=== PATIENT | female | born 1965 | race Caucasian/White ===

== ENCOUNTER 2022-07-07 09:12 | Day surgery (SDC) | payer BC ==
[2022-07-07] MEDS ORDERED: SYNVISC 16 MG/2 ML SYRINGE IU ONE (09:13)
[2022-07-07] MEDS ORDERED: LIDOCAINE HCL 1% 50 MG/5 ML VL PF IJ ONE (09:13)
--- NOTE | 2022-07-07 12:32 | XRAY ---
Indication: Right knee injection. Intraoperative fluoroscopy provided for 8 seconds. Single digital spot images submitted for interpretation demonstrates needle tip projecting over the right femur intercondylar notch. Small amount of contrast injected for needle tip placement. Correlate with intraoperative findings/report.
--- NOTE | 2022-07-07 12:32 | XRAY ---
Indication: Left knee injection. Intraoperative fluoroscopy provided for 7 seconds. Single digital spot images submitted for interpretation demonstrates needle tip projecting over the left femur intercondylar notch. Small amount of contrast injected for needle tip placement. Correlate with intraoperative findings/report.
--- NOTE | 2022-07-07 12:41 | XRAY ---
7 seconds of fluoroscopy was used in surgery for a left intra-articular knee injection.
--- NOTE | 2022-07-07 12:41 | XRAY ---
8 seconds of fluoroscopy was used in surgery for a right intra-articular knee injection.
== END 2022-07-07 11:25 | disposition home or self-care (01) ==
LOC: SDC-PAIN 09:12
PROVIDERS: ATTEND Psychiatry & Neurology Pain Medicine
DX: M17.0 Bilateral primary osteoarthritis of knee (principal); E11.9 Type 2 diabetes mellitus without complications; Z79.899 Other long term (current) drug therapy
CPT/HCPCS: 20610; 73560; 77002; 82947; J2001; J7325; Q9966

== ENCOUNTER 2022-07-14 09:13 | Day surgery (SDC) | payer BC ==
[2022-07-14] MEDS ORDERED: ORTHOVISC IU ONE (09:14)
[2022-07-14] MEDS ORDERED: LIDOCAINE HCL 1% 50 MG/5 ML VL PF IJ ONE (09:14)
--- NOTE | 2022-07-14 18:33 | XRAY ---
Indication: Left knee injection. Intraoperative fluoroscopy provided for 4 seconds. Single digital spot image submitted for interpretation demonstrates needle tip projecting over the left femur intercondylar notch. Small amount of contrast injected for needle tip placement. Correlate with intraoperative findings/report.
--- NOTE | 2022-07-14 18:33 | XRAY ---
Indication: Right knee injection. Intraoperative fluoroscopy provided for 10 seconds. Single digital spot image submitted for interpretation demonstrates needle tip projecting over the right femur intercondylar notch. Small amount of contrast injected for needle tip placement. Correlate with intraoperative findings/report.
--- NOTE | 2022-07-14 19:01 | XRAY ---
10 seconds of fluoroscopy was used in surgery for a right knee intra-articular injection.
--- NOTE | 2022-07-14 19:01 | XRAY ---
4 seconds of fluoroscopy was used in surgery for a left knee intra-articular injection.
== END 2022-07-14 10:35 | disposition home or self-care (01) ==
LOC: SDC-PAIN 09:13
PROVIDERS: ATTEND Psychiatry & Neurology Pain Medicine
DX: M17.0 Bilateral primary osteoarthritis of knee (principal); E11.9 Type 2 diabetes mellitus without complications; Z79.899 Other long term (current) drug therapy
CPT/HCPCS: 20610; 73560; 77002; 82947; J2001; J7324; Q9966

== ENCOUNTER 2022-07-21 09:06 | Day surgery (SDC) | payer BC ==
[2022-07-21] MEDS ORDERED: LIDOCAINE HCL 1% 50 MG/5 ML VL PF IJ ONE (09:07)
[2022-07-21] MEDS ORDERED: ORTHOVISC IU ONE (09:07)
--- NOTE | 2022-07-21 12:09 | XRAY ---
Indication: Right knee injection. Intraoperative fluoroscopy provided for 7 seconds. Single digital spot image submitted for interpretation demonstrates needle tip projecting over the right femur intercondylar notch. Small amount of contrast injected for needle tip placement. Correlate with intraoperative findings/report.
--- NOTE | 2022-07-21 12:10 | XRAY ---
Indication: Left knee injection. Intraoperative fluoroscopy provided for 10 seconds. Single digital spot image submitted for interpretation demonstrates needle tip projecting over the left femur intercondylar notch. Small amount of contrast injected for needle tip placement. Correlate with intraoperative findings/report.
--- NOTE | 2022-07-21 12:42 | XRAY ---
7 seconds of fluoroscopy was used in surgery for a right intra-articular knee injection.
--- NOTE | 2022-07-21 12:42 | XRAY ---
10 seconds of fluoroscopy was used in surgery for a left intra-articular knee injection.
== END 2022-07-21 11:40 | disposition home or self-care (01) ==
LOC: SDC-PAIN 09:06
PROVIDERS: ATTEND Psychiatry & Neurology Pain Medicine
DX: M17.0 Bilateral primary osteoarthritis of knee (principal); E11.9 Type 2 diabetes mellitus without complications; I10 Essential (primary) hypertension; Z79.899 Other long term (current) drug therapy
CPT/HCPCS: 20610; 73560; 77002; 82947; J2001; J7324; Q9966

== ENCOUNTER 2023-09-26 10:09 | Observation (INO) | payer BC ==
--- NOTE | 2023-09-26 08:32 | HP ---
HISTORY OF PRESENT ILLNESS: The patient is a 57-year-old female who has intermittent pain in the epigastrium, had prior umbilical hernia repair well away from the current area in question. PAST MEDICAL HISTORY: Hypertension, anxiety, type 2 diabetes, and depression. PAST SURGICAL HISTORY: Umbilical hernia repair in the past, had hysterectomy in the past. HOME MEDICATIONS: Ibuprofen, Xanax, Mounjaro, metformin, glimepiride, lisinopril. ALLERGIES: Morphine. SOCIAL HISTORY: No smoking or alcohol abuse. FAMILY HISTORY: Negative. REVIEW OF SYSTEMS: Twelve systems reviewed. No chest pain or palpitations. Other systems negative or noncontributory as above and per preadmission questionnaire. PHYSICAL EXAMINATION: VITAL SIGNS: Height 5 feet 6 inches. BMI 32.28. HEENT: Sclerae nonicteric. Extraocular movements intact. NECK: No JVD. CHEST: Equal excursion, nonlabored breathing. CARDIOVASCULAR: Regular rate and rhythm. ABDOMEN: Soft. Epigastric ventral hernia at the right of midline, incarcerated sac. EXTREMITIES: No cyanosis or edema. NEUROLOGIC: Alert and oriented, moving all extremities symmetrically. PSYCHIATRIC: Appropriate mood and affect. SKIN: Dry. IMPRESSION: Incarcerated ventral hernia. Recommend repair. Risks include but not limited to bleeding; infection; risk of hematoma seroma, or trocar injury; risk of bowel, bladder, or blood vessel injury; risk of mesh use; risks of mesh infection possibly requiring removal; risk of aches, pains, numbness, burning possibly chronic in nature; risk of adhesion or scar formation or bowel obstruction; remote risk of mesh fracture or failure possibly creating issues with viscera structure with the risk of ongoing morbidity and mortality; risk of perioperative ileus; risk of anesthesia, DVT, PE, pneumonia, but not limited. Patient accepts all the above risks but not limited to and agrees to the planned procedure. We will proceed with outpatient laparoscopic repair of incarcerated ventral hernia with mesh, possible open. Otherwise, we will continue medication for anxiety, diabetes, and hypertension.
[~2023-09-26 10:09] MED LIST: Sensorcaine 0.25% 10 ML ONE
[2023-09-26] MEDS ORDERED: CEFAZOLIN 2 GM/100 ML NaCl 2 GM/100 ML IVPB IV ONE (10:29)
[2023-09-26] MEDS ORDERED: Lactated Ringers 1,000 ML IV ONE ×2 (10:30→14:33)
[2023-09-26] MEDS: Lactated Ringers 1,000 ML IV SCH (10:48)
[2023-09-26] MEDS: CEFAZOLIN 2 GM/100 ML NaCl 2 GM/100 ML IVPB IV SCH (10:53)
[2023-09-26] MEDS ORDERED: MEFOXIN 2 GM PREMIX** 2 GM/50 ML ML IV SCH (11:00)
[2023-09-26 11:09] LABS: Calcium 9.6 mg/dL (8.4-10.2); Creatinine 1 0.93 mg/dL (0.52-1.04); EST GLOMERULAR FILTRATION RATE 72.1 ML/MIN; Potassium 3.8 mmol/L (3.5-5.1)
[2023-09-26] MEDS ORDERED: SUBLIMAZE 100 MCG/2 ML ONE ×2 (12:08→15:02)
[2023-09-26] MEDS ORDERED: DIPRIVAN 200 MG/20 ML IV ONE (12:08)
[2023-09-26] MEDS ORDERED: ROCURONIUM BROMIDE IV ONE ×2 (12:08→13:42)
[2023-09-26] MEDS ORDERED: Versed 2 MG/2 ML Injection ONE (12:08)
[2023-09-26] MEDS ORDERED: Xylocaine-Mpf 2% 5 Ml Vial ONE (12:09)
[2023-09-26] MEDS ORDERED: Sensorcaine 0.25% 10 ML ONE (12:29)
[2023-09-26] MEDS ORDERED: PHENYLEPHRINE HCL ONE (13:08)
[2023-09-26] MEDS ORDERED: Marcaine 0.5%/Epinephrine 10 ML ONE (14:00)
[2023-09-26] MEDS ORDERED: Zofran 4 MG/2 ML VIAL ONE (14:04)
[2023-09-26] MEDS ORDERED: BRIDION 200MG/2ML IV ONE (14:04)
[2023-09-26] MEDS ORDERED: TORAdol 30 mg Injection ONE (14:04)
[2023-09-26 15:02] LABS: Appearance Clear (Clear); Bacteria None Seen /HPF (None Seen); Bilirubin Negative (Negative); Blood Negative (Negative); Epithelial Cells None Seen /HPF (None Seen); Glucose, Urine Negative (Negative); Ketones Negative (Negative); Leukocyte Esterase Negative (Negative); Nitrite Negative (Negative); Protein,Urine Dip Trace (Negative); RBC 0-2 /HPF (0-5); Urobilinogen 0.2 mg/dL (0.2)
[2023-09-26] MEDS ORDERED: DEMEROL 50 MG ONE (15:41)
[2023-09-26] MEDS: MAGNESIUM SULF 2 G/50 ML BAG 2 GM/50 ML PIGGYBACK IV ONE (17:15)
--- NOTE | 2023-09-26 17:15 | PCM.NOTE ---
Date and Time: 09/26/231708 Subjective Assessment: MS. Segvoia is a 57 yr old female with pmhx of HTN, TYpeII DM, anxiety, and depression. She had a surgical procedure with Dr. Delgado today for a lap ventral hernia repair. In Surgery pt apprently bigeminy/ PVC's on tele. Pt was admitted post OP procedure for further evaluation of abnormal heart rhythm and by our team for medical management. Will check electrolytes, monitor on tele, and cardiology consulted. She denies any CP, SOB, abd. pain, N/V/D. - Review of Systems Constitutional: No Fever, No Chills Eyes: No Symptoms Ears, Nose, & Throat: No Symptoms Respiratory: No Cough, No Short Of Breath Cardiac: No Chest Pain, No Edema, No Syncope Abdominal/Gastrointestinal: No Abdominal Pain, No Nausea, No Vomiting, No Diarrhea Genitourinary Symptoms: No Dysuria Musculoskeletal: No Back Pain, No Neck Pain Skin: No Rash Neurological: No Dizziness, No Focal Weakness, No Sensory Changes Psychological: No Symptoms Endocrine: No Symptoms Hematologic/Lymphatic: No Symptoms Immunological/Allergic: No Symptoms Objective Exam General Appearance: no apparent distress, alert, obese Neurologic Exam: alert, oriented x 3, cooperative, normal mood/affect, nml cerebellar function, sensation nml, No motor deficits Skin Exam: normal color, warm, dry Eye Exam: PERRL, EOMI, eyes nml inspection Ears, Nose, Throat Exam: normal ENT inspection, pharynx normal, moist mucous membranes Neck Exam: normal inspection, non-tender, supple, full range of motion Respiratory Exam: normal breath sounds, lungs clear, No respiratory distress Cardiovascular Exam: regular rate/rhythm, normal heart sounds Gastrointestinal/Abdomen Exam: soft, No tenderness, No mass Extremity Exam: normal inspection, normal range of motion Back Exam: normal inspection, normal range of motion, No CVA tenderness, No vertebral tenderness Pelvic Exam: deferred Rectal Exam: deferred Objective Data Vital Signs: Vital Signs - 24 hr Temp Pulse Resp BP Pulse Ox 09/26/23 10:26 96.9 F 79 14 108/55 96 09/26/23 10:19 96.9 F 79 14 108/55 96 Intake and Output: Intake & Output 09/24/23 09/25/23 09/26/23 09/27/23 11:59 11:59 11:59 11:59 Weight 95.2 kg Lab Results: Lab Results-Last 24 Hours 09/26/23 09/26/23 09/26/23 Range/Units 10:45 10:46 10:46 Sodium 139 (135-145) mmol/L Potassium 3.8 (3.5-5.1) mmol/L Chloride 105 (98-107) mmol/L Carbon Dioxide 26 (22-30) mmol/L Anion Gap 12.0 (5-15) MEQ/L BUN 26 H (7-17) mg/dL Creatinine 0.93 (0.52-1.04) mg/dL Estimated GFR 72.1 ML/MIN Glucose 160 H (74-106) mg/dL POC Glucometer 160 H (74 to 106) mg/dL Hemoglobin A1c 5.90 (4.5-6.0) % Calcium 9.6 (8.4-10.2) mg/dL Magnesium (1.6-2.3) mg/dL Urine Color (Yellow) Urine Appearance (Clear) Urine pH (4.6-8.0) Ur Specific [place] (1.005-1.030) Urine Protein (Negative) Urine Glucose (UA) (Negative) mg/dL Urine Ketones (Negative) Urine Blood (Negative) Urine Nitrite (Negative) Urine Bilirubin (Negative) Urine Urobilinogen (0.2) mg/dL Ur Leukocyte Esterase (Negative) U Hyaline Cast (Auto) (0-2) /LPF Urine Microscopic RBC (0-5) /HPF Urine Microscopic WBC (0-5) /HPF Ur Epithelial Cells (None Seen) /HPF Urine Bacteria (None Seen) /HPF 09/26/23 09/26/23 09/26/23 Range/Units 13:00 14:49 14:58 Sodium (135-145) mmol/L Potassium (3.5-5.1) mmol/L Chloride (98-107) mmol/L Carbon Dioxide (22-30) mmol/L Anion Gap (5-15) MEQ/L BUN (7-17) mg/dL Creatinine (0.52-1.04) mg/dL Estimated GFR ML/MIN Glucose (74-106) mg/dL POC Glucometer 156 H (74 to 106) mg/dL Hemoglobin A1c (4.5-6.0) % Calcium (8.4-10.2) mg/dL Magnesium 1.7 (1.6-2.3) mg/dL Urine Color Yellow (Yellow) Urine Appearance Clear (Clear) Urine pH 7.0 (4.6-8.0) Ur Specific [place] 1.020 (1.005-1.030) Urine Protein Trace A (Negative) Urine Glucose (UA) Negative (Negative) mg/dL Urine Ketones Negative (Negative) Urine Blood Negative (Negative) Urine Nitrite Negative (Negative) Urine Bilirubin Negative (Negative) Urine Urobilinogen 0.2 (0.2) mg/dL Ur Leukocyte Esterase Negative (Negative) U Hyaline Cast (Auto) 3-5 A (0-2) /LPF Urine Microscopic RBC 0-2 (0-5) /HPF Urine Microscopic WBC 3-5 (0-5) /HPF Ur Epithelial Cells None Seen (None Seen) /HPF Urine Bacteria None Seen (None Seen) /HPF 09/26/23 Range/Units 17:02 Sodium (135-145) mmol/L Potassium (3.5-5.1) mmol/L Chloride (98-107) mmol/L Carbon Dioxide (22-30) mmol/L Anion Gap (5-15) MEQ/L BUN (7-17) mg/dL Creatinine (0.52-1.04) mg/dL Estimated GFR ML/MIN Glucose (74-106) mg/dL POC Glucometer 163 H (74 to 106) mg/dL Hemoglobin A1c (4.5-6.0) % Calcium (8.4-10.2) mg/dL Magnesium (1.6-2.3) mg/dL Urine Color (Yellow) Urine Appearance (Clear) Urine pH (4.6-8.0) Ur Specific Maple (1.005-1.030) Urine Protein (Negative) Urine Glucose (UA) (Negative) mg/dL Urine Ketones (Negative) Urine Blood (Negative) Urine Nitrite (Negative) Urine Bilirubin (Negative) Urine Urobilinogen (0.2) mg/dL Ur Leukocyte Esterase (Negative) U Hyaline Cast (Auto) (0-2) /LPF Urine Microscopic RBC (0-5) /HPF Urine Microscopic WBC (0-5) /HPF Ur Epithelial Cells (None Seen) /HPF Urine Bacteria (None Seen) /HPF Assessment/Plan (1) S/P repair of ventral hernia Current Visit: Yes Status: Acute Assessment & Plan: - Pt had procedure today with Dr. Delgado - Admitted by Dr. Delgado - Hospitalist consulted for medical management. - Ceftriaxone gave in OR. - Pain control - N/V PRN medication Code(s): Z98.890 - OTHER SPECIFIED POSTPROCEDURAL STATES; Z87.19 - PERSONAL HIS TORY OF OTHER DISEASES OF THE DIGESTIVE SYSTEM (2) PVC's (premature ventricular contractions) Current Visit: Yes Status: Acute Assessment & Plan: - tele - cardiology consult - Check electrolytes - Magnesium replaced IV in OR. Code(s): I49.3 - VENTRICULAR PREMATURE DEPOLARIZATION (3) Bigeminy Current Visit: Yes Status: Acute Assessment & Plan: - tele - cardiology consult - Check electrolytes - Magnesium replaced IV in OR. Code(s): I49.8 - OTHER SPECIFIED CARDIAC ARRHYTHMIAS (4) Obesity (BMI 30.0-34.9) Current Visit: Yes Status: Chronic Assessment & Plan: - advised diet and exercise control VTE: SCD's Next of KIN: D/C plan: tomorrow Code status: full Code(s): E66.9 - OBESITY, UNSPECIFIED
[2023-09-26] MEDS ORDERED: HUMALOG SQ PRN (17:32)
[2023-09-26 17:48] LABS: Hematocrit 40.3 % (34.1-44.9); Hemoglobin 13.8 g/dL (11.2-15.7); Mean Cell Volume 90.8 fL (79.4-94.8); Mean Corpuscular Hemoglobin 31.1 pg (25.6-32.2); Mean Corpuscular Hgb Concent. 34.2 g/dL (32.2-35.5); Mean Platelet Volume 10.2 fL (9.4-12.3); Platelet Count 193 x10^3/uL (182-369); Red Blood Count 4.44 x10^6/uL (3.93-5.22); Red Cell Distribution Width 12.6 % (11.7-14.4); White Blood Count 7.9 x10^3/uL (3.98-10.04)
[2023-09-26] MEDS ORDERED: Zofran 4 MG/2 ML VIAL IV PRN (18:15)
[2023-09-26] MEDS ORDERED: xanAX 0.5 MG PO PRN (18:30)
[2023-09-26 18:36] LABS: ANION GAP 12.3 MEQ/L (5-15); MAGNESIUM 2.3 mg/dL (1.6-2.3); Potassium 3.7 mmol/L (3.5-5.1); TSH, 3RD Generation 0.91 mIU/L (0.470-4.680)
[2023-09-26] MEDS: NORCO 5/325 MG PO PRN (18:50)
[2023-09-26] MEDS: Glucophage 500 MG PO SCH (22:41)
[2023-09-26] MEDS: Amaryl 2 MG PO SCH (22:41)
[2023-09-26] MEDS: Zestril 10 MG PO SCH (22:41)
[2023-09-27 05:33] LABS: Hemoglobin 12.4 g/dL (11.2-15.7); Mean Cell Volume 92.5 fL (79.4-94.8); Mean Corpuscular Hgb Concent. 33.5 g/dL (32.2-35.5); Mean Platelet Volume 11.2 fL (9.4-12.3); Platelet Count 191 x10^3/uL (182-369); Red Cell Distribution Width 12.7 % (11.7-14.4); White Blood Count 5.3 x10^3/uL (3.98-10.04)
[2023-09-27 05:49] LABS: ALBUMIN 3.4 g/dL (3.5-5.0); ANION GAP 8.6 MEQ/L (5-15); BILIRUBIN,TOTAL 0.7 mg/dL (0.2-1.3); Calcium 8.9 mg/dL (8.4-10.2); Creatinine 1 1.06 mg/dL (0.52-1.04); EST GLOMERULAR FILTRATION RATE 61.7 ML/MIN; Potassium 3.5 mmol/L (3.5-5.1); Total Protein 5.8 g/dL (6.3-8.2)
[2023-09-27 07:39] VITALS: TEMP 97.8
[2023-09-27] MEDS ORDERED: SUBLIMAZE 100 MCG/2 ML IV PRN (07:53)
[2023-09-27] MEDS ORDERED: Amaryl 2 MG PO SCH (10:00)
[2023-09-27] MEDS ORDERED: xanAX 0.5 MG PO SCH (10:00)
[2023-09-27] MEDS ORDERED: Zestril 10 MG PO SCH (10:00)
[2023-09-27 10:57] VITALS: BP 105/57; PULSE 76; RESP 19; O2SAT 93
--- NOTE | 2023-09-27 12:31 | PCM.NOTE ---
Date and Time: 09/27/23 1226 Subjective Assessment: 09/26/23 MRS. Segovia is a 57 yr old female with pmhx of HTN, TYpeII DM, anxiety, and depression. She had a surgical procedure with Dr. Delgado today for a lap ventral hernia repair. In Surgery pt apprently bigeminy/ PVC's on tele. Pt was admitted post OP procedure for further evaluation of abnormal heart rhythm and by our team for medical management. Will check electrolytes, monitor on tele, and cardiology consulted. She denies any CP, SOB, abd. pain, N/V/D. 09/27/23 Pt is resting in bed. Encouraged pt to work with PT today. Staff tried to get pt up and sit in a chair and she refused and said she hurt too bad. PVC's are occurring less. She denies CP or SOB. Awaiting cardiology consult. She has no electrolyte abnormalities. Possible d/c per surgery recs. IVF stopped as left arm became swollen. She is eating and drinking well. She has some abd. discomfort as to be expected from her surgery. - Review of Systems Constitutional: No Fever, No Chills Eyes: No Symptoms Ears, Nose, & Throat: No Symptoms Respiratory: No Cough, No Short Of Breath Cardiac: No Chest Pain, No Edema, No Syncope Abdominal/Gastrointestinal: Abdominal Pain, No Nausea, No Vomiting, No Diarrhea Genitourinary Symptoms: No Dysuria Musculoskeletal: No Back Pain, No Neck Pain Skin: No Rash Neurological: No Dizziness, No Focal Weakness, No Sensory Changes Psychological: No Symptoms Endocrine: No Symptoms Hematologic/Lymphatic: No Symptoms Immunological/Allergic: No Symptoms Objective Exam General Appearance: no apparent distress, alert, other (distress only with movement) Neurologic Exam: alert, oriented x 3, cooperative, normal mood/affect, nml cerebellar function, sensation nml, No motor deficits Skin Exam: normal color, warm, dry Eye Exam: PERRL, EOMI, eyes nml inspection Ears, Nose, Throat Exam: normal ENT inspection, pharynx normal, moist mucous membranes Neck Exam: normal inspection, non-tender, supple, full range of motion Respiratory Exam: normal breath sounds, lungs clear, No respiratory distress Cardiovascular Exam: regular rate/rhythm, normal heart sounds, other (with PVC's- improved from yesterday) Gastrointestinal/Abdomen Exam: soft, No tenderness, No mass Extremity Exam: normal inspection, normal range of motion Back Exam: normal inspection, normal range of motion, No CVA tenderness, No vertebral tenderness Pelvic Exam: deferred Rectal Exam: deferred Objective Data Vital Signs: Vital Signs - 24 hr Temp Pulse Resp BP Pulse Ox 09/27/23 10:56 97.8 F 76 19 105/57 93 L 09/27/23 07:39 97.8 F 72 18 103/55 97 09/27/23 04:00 96.7 F 69 16 100/59 93 L 09/26/23 23:26 98.1 F 72 16 118/58 95 09/26/23 19:12 97.6 F 74 16 120/65 96 09/26/23 17:27 97.5 F 76 19 95/49 92 L Pain Assessment - Last Documented Pain Intensity 4 Pain Scale Used 0-10 Pain Scale Intake and Output: Intake & Output 09/25/23 09/26/23 09/27/23 09/28/23 11:59 11:59 11:59 11:59 Intake Total 600 Balance 600 Weight 95.2 kg 96.2 kg Lab Results: Lab Results-Last 24 Hours 09/26/23 09/26/23 09/26/23 Range/Units 13:00 14:49 14:58 WBC (3.98-10.04) x10^3/uL RBC (3.93-5.22) x10^6/uL Hgb (11.2-15.7) g/dL Hct (34.1-44.9) % MCV (79.4-94.8) fL MCH (25.6-32.2) pg MCHC (32.2-35.5) g/dL RDW (11.7-14.4) % Plt Count (182-369) x10^3/uL MPV (9.4-12.3) fL Sodium (135-145) mmol/L Potassium (3.5-5.1) mmol/L Chloride (98-107) mmol/L Carbon Dioxide (22-30) mmol/L Anion Gap (5-15) MEQ/L BUN (7-17) mg/dL Creatinine (0.52-1.04) mg/dL Estimated GFR ML/MIN Glucose (74-106) mg/dL POC Glucometer 156 H (74 to 106) mg/dL Calcium (8.4-10.2) mg/dL Magnesium 1.7 (1.6-2.3) mg/dL Total Bilirubin (0.2-1.3) mg/dL AST (14-36) U/L ALT (0-35) U/L Alkaline Phosphatase (38-126) U/L Serum Total Protein (6.3-8.2) g/dL Albumin (3.5-5.0) g/dL TSH 3rd Generation (0.470-4.680) mIU/L Urine Color Yellow (Yellow) Urine Appearance Clear (Clear) Urine pH 7.0 (4.6-8.0) Ur Specific [place] 1.020 (1.005-1.030) Urine Protein Trace A (Negative) Urine Glucose (UA) Negative (Negative) mg/dL Urine Ketones Negative (Negative) Urine Blood Negative (Negative) Urine Nitrite Negative (Negative) Urine Bilirubin Negative (Negative) Urine Urobilinogen 0.2 (0.2) mg/dL Ur Leukocyte Esterase Negative (Negative) U Hyaline Cast (Auto) 3-5 A (0-2) /LPF Urine Microscopic RBC 0-2 (0-5) /HPF Urine Microscopic WBC 3-5 (0-5) /HPF Ur Epithelial Cells None Seen (None Seen) /HPF Urine Bacteria None Seen (None Seen) /HPF 09/26/23 09/26/23 09/26/23 Range/Units 17:02 17:40 17:40 WBC 7.9 (3.98-10.04) x10^3/uL RBC 4.44 (3.93-5.22) x10^6/uL Hgb 13.8 (11.2-15.7) g/dL Hct 40.3 (34.1-44.9) % MCV 90.8 (79.4-94.8) fL MCH 31.1 (25.6-32.2) pg MCHC 34.2 (32.2-35.5) g/dL RDW 12.6 (11.7-14.4) % Plt Count 193 (182-369) x10^3/uL MPV 10.2 (9.4-12.3) fL Sodium 138 (135-145) mmol/L Potassium 3.7 (3.5-5.1) mmol/L Chloride 103 (98-107) mmol/L Carbon Dioxide 26 (22-30) mmol/L Anion Gap 12.3 (5-15) MEQ/L BUN (7-17) mg/dL Creatinine (0.52-1.04) mg/dL Estimated GFR ML/MIN Glucose (74-106) mg/dL POC Glucometer 163 H (74 to 106) mg/dL Calcium (8.4-10.2) mg/dL Magnesium 2.3 (1.6-2.3) mg/dL Total Bilirubin (0.2-1.3) mg/dL AST (14-36) U/L ALT (0-35) U/L Alkaline Phosphatase (38-126) U/L Serum Total Protein (6.3-8.2) g/dL Albumin (3.5-5.0) g/dL TSH 3rd Generation 0.910 (0.470-4.680) mIU/L Urine Color (Yellow) Urine Appearance (Clear) Urine pH (4.6-8.0) Ur Specific [place] (1.005-1.030) Urine Protein (Negative) Urine Glucose (UA) (Negative) mg/dL Urine Ketones (Negative) Urine Blood (Negative) Urine Nitrite (Negative) Urine Bilirubin (Negative) Urine Urobilinogen (0.2) mg/dL Ur Leukocyte Esterase (Negative) U Hyaline Cast (Auto) (0-2) /LPF Urine Microscopic RBC (0-5) /HPF Urine Microscopic WBC (0-5) /HPF Ur Epithelial Cells (None Seen) /HPF Urine Bacteria (None Seen) /HPF 09/26/23 09/27/23 09/27/23 Range/Units 21:43 04:40 04:40 WBC 5.3 (3.98-10.04) x10^3/uL RBC 4.00 (3.93-5.22) x10^6/uL Hgb 12.4 (11.2-15.7) g/dL Hct 37.0 (34.1-44.9) % MCV 92.5 (79.4-94.8) fL MCH 31.0 (25.6-32.2) pg MCHC 33.5 (32.2-35.5) g/dL RDW 12.7 (11.7-14.4) % Plt Count 191 (182-369) x10^3/uL MPV 11.2 (9.4-12.3) fL Sodium (135-145) mmol/L Potassium (3.5-5.1) mmol/L Chloride (98-107) mmol/L Carbon Dioxide (22-30) mmol/L Anion Gap (5-15) MEQ/L BUN (7-17) mg/dL Creatinine (0.52-1.04) mg/dL Estimated GFR ML/MIN Glucose (74-106) mg/dL POC Glucometer 162 H (74 to 106) mg/dL Calcium (8.4-10.2) mg/dL Magnesium 2.2 (1.6-2.3) mg/dL Total Bilirubin (0.2-1.3) mg/dL AST (14-36) U/L ALT (0-35) U/L Alkaline Phosphatase (38-126) U/L Serum Total Protein (6.3-8.2) g/dL Albumin (3.5-5.0) g/dL TSH 3rd Generation (0.470-4.680) mIU/L Urine Color (Yellow) Urine Appearance (Clear) Urine pH (4.6-8.0) Ur Specific [place] (1.005-1.030) Urine Protein (Negative) Urine Glucose (UA) (Negative) mg/dL Urine Ketones (Negative) Urine Blood (Negative) Urine Nitrite (Negative) Urine Bilirubin (Negative) Urine Urobilinogen (0.2) mg/dL Ur Leukocyte Esterase (Negative) U Hyaline Cast (Auto) (0-2) /LPF Urine Microscopic RBC (0-5) /HPF Urine Microscopic WBC (0-5) /HPF Ur Epithelial Cells (None Seen) /HPF Urine Bacteria (None Seen) /HPF 09/27/23 09/27/23 09/27/23 Range/Units 04:40 06:54 10:49 WBC (3.98-10.04) x10^3/uL RBC (3.93-5.22) x10^6/uL Hgb (11.2-15.7) g/dL Hct (34.1-44.9) % MCV (79.4-94.8) fL MCH (25.6-32.2) pg MCHC (32.2-35.5) g/dL RDW (11.7-14.4) % Plt Count (182-369) x10^3/uL MPV (9.4-12.3) fL Sodium 138 (135-145) mmol/L Potassium 3.5 (3.5-5.1) mmol/L Chloride 105 (98-107) mmol/L Carbon Dioxide 28 (22-30) mmol/L Anion Gap 8.6 (5-15) MEQ/L BUN 24 H (7-17) mg/dL Creatinine 1.06 H (0.52-1.04) mg/dL Estimated GFR 61.7 ML/MIN Glucose 101 (74-106) mg/dL POC Glucometer 65 L 132 H (74 to 106) mg/dL Calcium 8.9 (8.4-10.2) mg/dL Magnesium (1.6-2.3) mg/dL Total Bilirubin 0.70 (0.2-1.3) mg/dL AST 21 (14-36) U/L ALT 21 (0-35) U/L Alkaline Phosphatase 57 (38-126) U/L Serum Total Protein 5.8 L (6.3-8.2) g/dL Albumin 3.4 L (3.5-5.0) g/dL TSH 3rd Generation (0.470-4.680) mIU/L Urine Color (Yellow) Urine Appearance (Clear) Urine pH (4.6-8.0) Ur Specific [place] (1.005-1.030) Urine Protein (Negative) Urine Glucose (UA) (Negative) mg/dL Urine Ketones (Negative) Urine Blood (Negative) Urine Nitrite (Negative) Urine Bilirubin (Negative) Urine Urobilinogen (0.2) mg/dL Ur Leukocyte Esterase (Negative) U Hyaline Cast (Auto) (0-2) /LPF Urine Microscopic RBC (0-5) /HPF Urine Microscopic WBC (0-5) /HPF Ur Epithelial Cells (None Seen) /HPF Urine Bacteria (None Seen) /HPF Assessment/Plan (1) S/P repair of ventral hernia Current Visit: Yes Status: Acute Code(s): Z98.890 - OTHER SPECIFIED POSTPROCEDURAL STATES; Z87.19 - PERSONAL HISTORY OF OTHER DISEASES OF THE DIGESTIVE SYSTEM (2) PVC's (premature ventricular contractions) Current Visit: Yes Status: Acute Code(s): I49.3 - VENTRICULAR PREMATURE DEPOLARIZATION (3) Bigeminy Current Visit: Yes Status: Acute Code(s): I49.8 - OTHER SPECIFIED CARDIAC ARRHYTHMIAS (4) Obesity (BMI 30.0-34.9) Current Visit: Yes Status: Chronic Assessment & Plan: (1) S/P repair of ventral hernia Current Visit: Yes Status: Acute Assessment & Plan: - Pt had procedure today with Dr. Delgado - Admitted by Dr. Delgado - Hospitalist consulted for medical management. - Ceftriaxone gave in OR. - Pain control - N/V PRN medication Code(s): Z98.890 - OTHER SPECIFIED POSTPROCEDURAL STATES; Z87.19 - PERSONAL HISTORY OF OTHER DISEASES OF THE DIGESTIVE SYSTEM (2) PVC's (premature ventricular contractions) Current Visit: Yes Status: Acute Assessment & Plan: - tele - cardiology consult today - Check electrolytes- reviewed and WNL - Magnesium replaced IV in OR. - 09/26 - improved and occurring less Code(s): I49.3 - VENTRICULAR PREMATURE DEPOLARIZATION (3) Bigeminy Current Visit: Yes Status: Acute Assessment & Plan: - tele - cardiology consult- today - Check electrolytes- reviewed - Magnesium replaced IV in OR. - Improved 09/26 Code(s): I49.8 - OTHER SPECIFIED CARDIAC ARRHYTHMIAS (4) Obesity (BMI 30.0-34.9) Current Visit: Yes Status: Chronic Assessment & Plan: - advised diet and exercise control Code(s): E66.9 - OBESITY, UNSPECIFIED
--- NOTE | 2023-09-27 13:08 | PCM.CONS ---
History of Present Illness - Date of Consult Date of Encounter: 09/27/23 Consulting Security Alarm Technician: BENTLEY BARILLAS MD Requesting Provider: Attending Provider: ANTONY MASSEY MD Primary Care Provider: PCP: MANNY FREITAS Consent was: Given for this tele-med encounter - Consult Narrative Reason for Consult: PVCs post-op HPI: Patient is a 57F with history of HTN, type II DM, and anxiety who underwent a ventral herniorraphy yesterday. She was noted to have frequent isolated PVCs every 5 or 6 beats postop promptng consultation. She denies any palpitations with these PVCs. She had frequent PVCs on her preop ECG yesterday am and they have continued this am. Her nurse feels her PVCs are less frequent now. Patient denies any chest discomfort, shortness of breath, light-headedness, or syncope. She denies any prior cardiac history or cardiac evaluation outside of ECGs. Her activity is limited by one her knees particularly when going up a hill. Labs are remarkable for a potassiium 3.7, magnesium 2.3, and noral TSH. cc:: The requesting physician will be sent a copy of the consult. - Past Medical History Past Medical History: Yes Neurological History: No Pertinent History ENT History: No Pertinent History Cardiac History: Hypertension Respiratory History: No Pertinent History Endocrine Medical History: Diabetes Type II Musculoskelatal History: No Pertinent History GI Medical History: No Pertinent History History: No Pertinent History Pyscho-Social History: No Pertinent History Reproductive Disorders: No Pertinent History - Past Surgical History Past Surgical History: Yes Neuro Surgical History: No Pertinent History Cardiac History: No Pertinent History Respiratory Surgery: No Pertinent History GI Surgical History: Hernia Repair Genitourinary Surgical Hx: No Pertinent History Musculskeletal Surgical Hx: No Pertinent History Female Surgical History: Hysterectomy - Social History Smoking Status: Former smoker Exposure to second hand smoke: No Alcohol: None Drug Use: none - Social Determinants of Health Will the patient participate in the screening: Yes Do you worry about a steady place to live?: No Do you have any problems with any of the following?: No known problems In the past 12 months,have you had to go without utilities?: No Have you or anyone in your house had to go without enough: No Transportation Issues: No Has anyone in your support network made you feel unsafe?: No Does the patient want assistance with any of the above?: No Medications & Allergies Home Medications: Home Medication List Alprazolam [Xanax] 0.5 mg PO DAILY PRN 09/06/23 [History Confirmed 09/26/23] Glimepiride 2 mg [Amaryl 2 MG] 2 mg PO HS 09/06/23 [History Confirmed 09/26/23] Ibuprofen 800 mg PO HS 09/06/23 [History Confirmed 09/26/23] Lisinopril 10 mg [Zestril 10 MG] 10 mg PO HS 09/06/23 [History Confirmed 09/26/23] Tirzepatide [Mounjaro] 12.5 mg SQ WEEKLY 09/06/23 [History Confirmed 09/26/23] Hydrocodone/Acetaminophen [Hydrocodone-Acetamin 5-325 mg] 1 tab PO Q4HPRN PRN #28 tablet MDD 6 09/26/23 [Rx] Metformin HCl 500 mg [Glucophage 500 MG] 500 mg PO HS 09/26/23 [History Confirmed 09/26/23] Allergies/Adverse Reactions: Allergies Allergy/AdvReac Type Severity Reaction Status Date / Time morphine AdvReac Intermediate Verified 09/26/23 17:14 Exam - Vitals Vital Signs: Vital Signs - 24 hr Temp Pulse Resp BP Pulse Ox 09/27/23 10:56 97.8 F 76 19 105/57 93 L 09/27/23 07:39 97.8 F 72 18 103/55 97 09/27/23 04:00 96.7 F 69 16 100/59 93 L 09/26/23 23:26 98.1 F 72 16 118/58 95 09/26/23 19:12 97.6 F 74 16 120/65 96 09/26/23 17:27 97.5 F 76 19 95/49 92 L General:: alert and oriented x 4, no acute distress HEENT: EOMI Cardiovascular Exam: regular rate/rhythm (with occasional irregular beats.), normal heart sounds, No murmur, No friction rub, No gallop Respiratory Exam: normal breath sounds SpO2: 93 Gastrointestinal/Abdomen Exam: normal bowel sounds Skin Exam: normal color Extremity Exam: No edema Neurologic: trim operator II-XII grossly intact, No motor deficits Results Vital Signs: Vital Signs - 24 hr Temp Pulse Resp BP Pulse Ox 09/27/23 10:56 97.8 F 76 19 105/57 93 L 09/27/23 07:39 97.8 F 72 18 103/55 97 09/27/23 04:00 96.7 F 69 16 100/59 93 L 09/26/23 23:26 98.1 F 72 16 118/58 95 09/26/23 19:12 97.6 F 74 16 120/65 96 09/26/23 17:27 97.5 F 76 19 95/49 92 L Pain Assessment - Last Documented Pain Intensity 4 Pain Scale Used 0-10 Pain Scale Intake and Output: Intake & Output 09/25/23 09/26/23 09/27/23 09/28/23 11:59 11:59 11:59 11:59 Intake Total 600 Balance 600 Weight 95.2 kg 96.2 kg LAB: I have reviewed the Labs in [facility]. Tracing 1 Attestation: I have reviewed this EKG and interpreted as documented below. EKG Narrative: Per my review: 09/25/2013 ECGS: At 1052 - NSR with frequent PVCs at 80 bpm. Otherwise normal ECG. At 1644 - NSR with frequent PVCs at 78 bpm. Nonspecific T wave abnormality. PVC morphology: LBBB-like and inferior axis. Focus appears to be in the right ventricular outflow tract. Telemetry 09/25-09/27/2023: Normal sinus rhythm with frequent unifocal PVCs. No couplets or VT. Assessment & Plan (1) PVC's (premature ventricular contractions) Current Visit: Yes Status: Acute Assessment & Plan: Asymptomatic. Unifocal and frequent both before and after surgery. Unremarkable electrolytes. Medical therapy is not currently indicated with her normal cardiovascular exam and lack of symptoms. Possibly related to increased catecholamines from anxiety preop and discomfort postop but further work-up remains indicated. Recommend an outpatient echocardiogram to exclude an occult cardiomyopathy as well as a 24 hr Holter monitor to quantitate her PVC burden. She could be referred to a racing driver for the evaluation vs tests ordered by PCP with cardiology referral for any abnormalities on noninvasive testing. Code(s): I49.3 - VENTRICULAR PREMATURE DEPOLARIZATION (2) Hypertension Current Visit: Yes Status: Acute Qualifiers: Hypertension type: primary hypertension Qualified Code(s): I10 - Essential (primary) hypertension Assessment & Plan: Well controlled on lisinopril. Code(s): I10 - ESSENTIAL (PRIMARY) HYPERTENSION (3) Type II diabetes mellitus Current Visit: Yes Status: Acute Assessment & Plan: Well controlled per patient's history. Hgb A1c not available. (4) S/P repair of ventral hernia Current Visit: Yes Status: Acute Assessment & Plan: Postop day 1. Doing well. Discharge is anticipated today. Code(s): Z98.890 - OTHER SPECIFIED POSTPROCEDURAL STATES; Z87.19 - PERSONAL HISTORY OF OTHER DISEASES OF THE DIGESTIVE SYSTEM - Encounter Encounter: "The entirety of this encounter was performed via Telemedicine using audio and visual " Permission granted by patient for this type of encounter. Her was present. Case discussed with Deanne Acharya. Bentley Barillas MD [facility] [phone]
--- NOTE | 2023-09-27 13:53 | OP ---
SURGERY DATE/TIME: 09/26/2023 0457 - [id number] PREOPERATIVE DIAGNOSIS: Symptomatic incarcerated ventral hernia. POSTOPERATIVE DIAGNOSIS: Symptomatic incarcerated ventral hernia. PROCEDURE: Laparoscopic-assisted repair incarcerated ventral hernia with mesh (spans approximately 3.5 to 4 cm). SURGEON: William Singh MD ANESTHESIA: General. FINDINGS: A 3.5 to 4 cm defect with a softball-sized incarcerated fat up in the epigastrium. ESTIMATED BLOOD LOSS: Minimal. INDICATIONS: As above. Consent was obtained. DESCRIPTION OF PROCEDURE AND FINDINGS: The patient was taken to the operating room. General anesthesia was induced. The patient actually was in a low lithotomy position. Abdomen was prepped and draped in the usual sterile fashion. After official time-out and no disagreement in planned procedure, transverse incision made. Fascia grasped upwards; however, Veress needle, because of her obesity, was not easy to pop in the peritoneum. Therefore, it was elected to stick the needle in below the umbilical area in a free area. The fascia pulled up, the Veress needle easily inserted. Tested with saline. Pneumoperitoneum accomplished insufflating to an open pressure of 0-15. Once this was done, a transverse incision made and then along the left costal margin, a 5 mm bladeless port and camera inserted without difficulty and an infraumbilical 5 mm bladeless port below the patient's prior umbilical hernia repair with mesh. A right upper quadrant 5 mm port and left upper quadrant 5 mm ports were placed. Preperitoneal space was entered and extraperitoneal space carefully taken down on either side in the preperitoneal space dissecting to the 3.5 to 4 cm hernia defect. Had a large amount of almost softball-sized incarcerated fat. This was slowly and carefully reduced out of the hernia defect. Once this was all reduced, again, the defect was measured and although there had been a large amount of adipose tissue taken out, the defect was 3.5 to 4 cm. It was felt the time putting the transfascial sutures bringing it back to midline as well as appropriate use of size [address] coated mesh. Therefore, the mesh was carefully measured on the abdominal wall. Three-quadrant 0 Ethibond was placed as well as a #1 Vicryl in the very cephalad next to the xiphoid. The strap was then removed. The mesh was wet and after making a small transverse incision and carefully dissecting around the large hernia sac with a clamp, suture passer carefully placed in the transfascial #1 Vicryl, 1 cm apart. These are temporary tagged. The 11-12 port was placed through the defect. The mesh was wet and gently rolled easily and placed in the abdomen. Port was removed. The transfascial #1 Vicryls were secured bringing the fascia back from the midline. Once this was accomplished, the 0 Ethibond, 0 Vicryl pulled up at the 4 quadrants. The mesh was nice and flat. These were tied transfascially through 4-quadrant stab wounds. The mesh was nice and flat. For added security, SorbaFix tacker was carefully tacked to 5 cm port around the periphery as well as 2 or 3 more centrally to reduce any space for seroma formation. Again, that was all done transfascial, closing with #1 Vicryls and then securing the mesh was all done with the pressure having been turned down to 8 to avoid any distortion of the abdominal wall. Mesh was nice and flat, tension-free fascia. It was left in the preperitoneal space and perineum to be popped up and covered the mesh area. Otherwise, at this point, the middle portion of pneumoperitoneum decompressed. Subcutaneous where the 12 port had been was closed with 0 Vicryl. Skin incision closed with 4-0 Vicryl. Steri-Strips and sterile dressing applied. Marcaine 0.25% local had been injected along each skin incision and fascial defect. There were no immediate complications. Anesthesia planned abdominal wall blocks. The patient did get a sterile pressure dressing and binder. Findings discussed with family out in the waiting area. She was transferred to the recovery room in stable condition. She is to avoid heavy lifting, pushing, pulling for 6 to 8 weeks. She will wear her abdominal binder when up and down. We will see her back in the office next week.
--- NOTE | 2023-09-27 14:40 | PCM.DCORD ---
- Discharge Discharge Date: 09/27/23 Disposition: Home, Self-Care Condition: Stable Prescriptions: New Hydrocodone/Acetaminophen [Hydrocodone-Acetamin 5-325 mg] 1 tab PO Q4HPRN PRN #28 tablet MDD 6 PRN Reason: Pain Continue Tirzepatide [Mounjaro] 12.5 mg SQ WEEKLY Lisinopril 10 mg [Zestril 10 MG] 10 mg PO HS Glimepiride 2 mg [Amaryl 2 MG] 2 mg PO HS Ibuprofen 800 mg PO HS Alprazolam [Xanax] 0.5 mg PO DAILY PRN PRN Reason: Anxiety Metformin HCl 500 mg [Glucophage 500 MG] 500 mg PO HS Outpatient Orders: ECHO W/2D AND DOPPLER Facility: [facility] Hosp, Location: RADIOLOGY Holter Monitor Facility: [facility], Location: RESPIRATORY THERAPY Instructions: Ventricular premature beats, Hernia Repair (DC) Additional Instructions: Avoid heavy lifting or straining for 6-8 wks Follow up with: LINDEN BARNARD [COURTESY STAFF] - 10/03/23 8:30 am ([place] [facility]) MANNY FREITAS [Primary Care Provider] - 10/04/23 10:45 am
== END 2023-09-27 15:28 | disposition home or self-care (01) ==
LOC: SDC 10:09 → MED SURG 16:56
PROVIDERS: ADMIT Internal Medicine; ATTEND Internal Medicine
DX: I49.3 Ventricular premature depolarization (principal); K43.6 Other and unspecified ventral hernia with obstruction, without gangrene; I10 Essential (primary) hypertension; E11.9 Type 2 diabetes mellitus without complications; Z87.19 Personal history of other diseases of the digestive system; F41.9 Anxiety disorder, unspecified; I49.8 Other specified cardiac arrhythmias; E66.9 Obesity, unspecified; Z79.899 Other long term (current) drug therapy
CPT/HCPCS: 36415; 49594; 64488; 76937; 80048; 80051; 80053; 81001; 82947; 83036; 83735; 84443; 85027; 87086; 93005; C1781; 93268; J0690; J1885; J2175; J2250; J2371; J2405; J2704; J3010; L0625; Q3014; A9270-GY; G0378; J3475

== ENCOUNTER 2023-09-29 22:19 | Emergency (ER) | payer BC ==
[2023-09-29 22:33] VITALS: RESP 18; TEMP 98.4
--- NOTE | 2023-09-29 22:54 | ERPHSYRPT ---
- History of Present Illness Time Seen by Provider: 09/29/23 22:23 Historian: patient Exam Limitations: no limitations Patient Subjective Stated Complaint: vomiting x2 today Triage Nursing Assessment: pt ambulated into ER without diff, daughter at bedside. Pt is alert and oriented x4. Pt c/o vomiting x2 episode this evening starting at 9pm. Pt had ventral hernia surgery on Tuesday and feels bloated/constipated. Abd lg, soft with active bs x4 quad, nontender. Pt is wearing abd binder from surgery. Pt has 5 surgical sites to abd, all covered with steri strips, no drainage or redness noted. Pt's daughter informed me that 5 members of the family have had a stomach virus this week with vomiting and diarrhea as well. Pt's daughter would like her to receive some fluids for hydration and something for nausea since she just had the surgery, didn't want her puking hard and messing something up. Physician History: 57-year-old female with history of hypertension, diabetes mellitus status post laparoscopic ventral hernia repair by Dr. Singh 3 days ago presented in the ER with complains of abdominal bloating, nausea and vomiting prior to arrival. Patient reports 2 episodes of nonprojectile, nonbilious vomiting with no hematemesis. Patient repeat some soreness around incisions areas. Did take some stool softener earlier today and has a small bowel movement. Reports passing gas. Patient reports other family member had similar flulike symptoms and thinks is probably secondary to that. No fever or chills reported. Allergies/Adverse Reactions: morphine Adverse Reaction (Intermediate, Verified 09/29/23 22:48) bottoms out bp Home Medications: Alprazolam [Xanax] 0.5 mg PO DAILY PRN PRN 09/06/23 [History] Glimepiride 2 mg [Amaryl 2 MG] 2 mg PO HS 09/06/23 [History] Lisinopril 10 mg [Zestril 10 MG] 10 mg PO HS 09/06/23 [History] Tirzepatide [Mounjaro] 12.5 mg SQ WEEKLY 09/06/23 [History] Metformin HCl 500 mg [Glucophage 500 MG] 500 mg PO HS 09/26/23 [History] Hx Tetanus, Diphtheria Vaccination/Date Given: Yes Hx Influenza Vaccination/Date Given: No Hx Pneumococcal Vaccination/Date Given: No Travel Risk - International Travel Have you traveled outside of the country in past 3 weeks: No - Emerging Infectious Disease Are you exhibiting symptoms associated with any current EIDs: Yes Symptoms: Vomitting - Review of Systems Constitutional: No Symptoms Eyes: No Symptoms Ears, Nose, & Throat: No Symptoms Respiratory: No Symptoms Cardiac: No Symptoms Abdominal/Gastrointestinal: Abdominal Pain, Nausea, Vomiting Genitourinary Symptoms: No Symptoms Musculoskeletal: No Symptoms Skin: No Symptoms Neurological: No Symptoms Psychological: Anxiety Endocrine: No Symptoms Hematologic/Lymphatic: No Symptoms - Past Medical History Pertinent Past Medical History: Yes Neurological History: No Pertinent History ENT History: No Pertinent History Cardiac History: Hypertension Respiratory History: No Pertinent History Endocrine Medical History: Diabetes Type II Musculoskeletal History: No Pertinent History GI Medical History: Hernia History: No Pertinent History Psycho-Social History: No Pertinent History Female Reproductive Disorders: No Pertinent History - Past Surgical History Past Surgical History: Yes Neuro Surgical History: No Pertinent History Cardiac: No Pertinent History Respiratory: No Pertinent History Gastrointestinal: Hernia Repair Genitourinary: No Pertinent History Musculoskeletal: No Pertinent History Female Surgical History: Hysterectomy - Social History Smoking Status: Never smoker Exposure to second hand smoke: Yes Drug Use: none - Social Determinants of Health Will the patient participate in the screening: Yes Do you worry about a steady place to live?: No Do you have any problems with any of the following?: No known problems In the past 12 months,have you had to go without utilities?: No Transportation Issues: No Has anyone in your support network made you feel unsafe?: No Have you or anyone in your house had to go without enough: No - Nursing Vital Signs Nursing Vital Signs: Initial Vital Signs Temperature 98.4 F 09/29/23 22:30 Pulse Rate 91 H 09/29/23 22:30 Respiratory Rate 18 09/29/23 22:30 Blood Pressure 151/78 09/29/23 22:30 O2 Sat by Pulse Oximetry 99 09/29/23 22:30 Pain Scale Pain Intensity 2 - Physical Exam General Appearance: no apparent distress, alert Eye Exam: PERRL/EOMI Ears, Nose, Throat Exam: normal ENT inspection Neck Exam: normal inspection, full range of motion Respiratory Exam: normal breath sounds, lungs clear Cardiovascular Exam: regular rate/rhythm, normal heart sounds Gastrointestinal/Abdomen Exam: soft, normal bowel sounds, tenderness (Mild tenderness upper abdomen), other (Clean dry incision marked with no erythema around.) Back Exam: normal inspection Extremity Exam: normal inspection, normal range of motion Neurologic Exam: alert, oriented x 3, cooperative Skin Exam: normal color SpO2 Interpretation: normal SpO2: 99 O2 Delivery: Room Air Ordered Tests: Medication Summary Discontinued Medications Generic Name Dose Route Start Last Admin Trade Name Lionelq PRN Reason Stop Dose Admin Sodium Chloride 1,000 mls @ 999 mls/hr 09/29/23 22:46 09/29/23 23:03 Sodium Chloride 0.9% 1000 Ml IV 09/29/23 23:46 999 mls/hr .Q1H1M STA Administration Sodium Chloride Confirm 09/29/23 22:55 Sodium Chloride 0.9% 1000 Ml Administered 09/29/23 22:56 Dose 1,000 mls @ ud .ROUTE .STK-MED ONE Ceftriaxone Sodium 2 gm in 100 mls @ 200 mls/hr 09/30/23 00:15 09/30/23 00:22 Rocephin 2 Gm/100 Ml Nacl IV 09/30/23 00:44 200 mls/hr STAT ONE 200 mls/hr Administration Ceftriaxone Sodium Confirm 09/30/23 00:21 Rocephin 2 Gm/100 Ml Nacl Administered 09/30/23 00:22 Dose 2 gm in 100 mls @ ud IV .STK-MED ONE Metoclopramide HCl 10 mg 09/29/23 22:46 09/29/23 23:03 Metoclopramide Hcl 10 Mg/2 Ml Vial IV 09/29/23 22:47 10 mg STAT ONE Administration Metoclopramide HCl Confirm 09/29/23 22:55 Metoclopramide Hcl 10 Mg/2 Ml Vial Administered 09/29/23 22:56 Dose 10 mg .ROUTE .STK-MED ONE Ondansetron HCl Confirm 09/30/23 00:47 Ondansetron Hcl 4 Mg/2 Ml Vial Administered 09/30/23 00:48 Dose 4 mg .ROUTE .STK-MED ONE Lab/Rad Data: Laboratory Result Diagrams 09/29/23 23:00 09/29/23 23:00 Laboratory Results 09/29/23 09/29/23 09/29/23 Range/Units 23:00 23:00 23:00 WBC 7.5 (3.98-10.04) x10^3/uL RBC 4.54 (3.93-5.22) x10^6/uL Hgb 14.0 (11.2-15.7) g/dL Hct 41.2 (34.1-44.9) % MCV 90.7 (79.4-94.8) fL MCH 30.8 (25.6-32.2) pg MCHC 34.0 (32.2-35.5) g/dL RDW 12.4 (11.7-14.4) % Plt Count 181 L (182-369) x10^3/uL MPV 10.5 (9.4-12.3) fL Gran % 87.4 H (34.0-71.1) % Immature Gran % (Auto) 0.4 (0.001-0.429) % Nucleat RBC Rel Count 0.0 (0.00-0.2) % Eos # (Auto) 0.21 (0.04-0.36) x10^3/uL Immature Gran # (Auto) 0.03 (0.001-0.031) x10^3u/L Absolute Lymphs (auto) 0.36 L (1.18-3.74) x10^3/uL Absolute Monos (auto) 0.34 (0.24-0.86) x10^3/uL Absolute Nucleated RBC 0.00 (0.00-0.012) x10^3u/L Lymphocytes % 4.8 L (19.3-51.7) % Monocytes % 4.5 L (4.7-12.5) % Eosinophils % 2.8 (0.7-5.8) % Basophils % 0.1 (0.1-1.2) % Absolute Granulocytes 6.55 H (1.56-6.13) x10^3/uL Basophils # 0.01 (0.01-0.08) x10^3/uL Sodium 138 (135-145) mmol/L Potassium 3.8 (3.5-5.1) mmol/L Chloride 105 (98-107) mmol/L Carbon Dioxide 28 (22-30) mmol/L Anion Gap 8.8 (5-15) MEQ/L BUN 15 (7-17) mg/dL Creatinine 0.85 (0.52-1.04) mg/dL Estimated GFR 80.4 ML/MIN Glucose 185 H (74-106) mg/dL Calcium 8.8 (8.4-10.2) mg/dL Total Bilirubin 0.60 (0.2-1.3) mg/dL AST 23 (14-36) U/L ALT 22 (0-35) U/L Alkaline Phosphatase 64 (38-126) U/L Serum Total Protein 6.3 (6.3-8.2) g/dL Albumin 3.6 (3.5-5.0) g/dL Lipase 32 (23-300) U/L Urine Color (Yellow) Urine Appearance (Clear) Urine pH (4.6-8.0) Ur Specific [place] (1.005-1.030) Urine Protein (Negative) Urine Glucose (UA) (Negative) mg/dL Urine Ketones (Negative) Urine Blood (Negative) Urine Nitrite (Negative) Urine Bilirubin (Negative) Urine Urobilinogen (0.2) mg/dL Ur Leukocyte Esterase (Negative) U Hyaline Cast (Auto) (0-2) /LPF Urine Microscopic RBC (0-5) /HPF Urine Microscopic WBC (0-5) /HPF Ur Epithelial Cells (None Seen) /HPF Calcium Oxalate Crystal (None Seen) /HPF Urine Bacteria (None Seen) /HPF Urine Culture Reflexed (NO) Influenza Type A Ag NEGATIVE (NEGATIVE) Influenza Type B Ag NEGATIVE (NEGATIVE) RSV (PCR) NEGATIVE (NEGATIVE) SARS-CoV-2 (PCR) NEGATIVE (NEGATIVE) Slides for Path Review YES 09/29/23 Range/Units 22:33 WBC (3.98-10.04) x10^3/uL RBC (3.93-5.22) x10^6/uL Hgb (11.2-15.7) g/dL Hct (34.1-44.9) % MCV (79.4-94.8) fL MCH (25.6-32.2) pg MCHC (32.2-35.5) g/dL RDW (11.7-14.4) % Plt Count (182-369) x10^3/uL MPV (9.4-12.3) fL Gran % (34.0-71.1) % Immature Gran % (Auto) (0.001-0.429) % Nucleat RBC Rel Count (0.00-0.2) % Eos # (Auto) (0.04-0.36) x10^3/uL Immature Gran # (Auto) (0.001-0.031) x10^3u/L Absolute Lymphs (auto) (1.18-3.74) x10^3/uL Absolute Monos (auto) (0.24-0.86) x10^3/uL Absolute Nucleated RBC (0.00-0.012) x10^3u/L Lymphocytes % (19.3-51.7) % Monocytes % (4.7-12.5) % Eosinophils % (0.7-5.8) % Basophils % (0.1-1.2) % Absolute Granulocytes (1.56-6.13) x10^3/uL Basophils # (0.01-0.08) x10^3/uL Sodium (135-145) mmol/L Potassium (3.5-5.1) mmol/L Chloride (98-107) mmol/L Carbon Dioxide (22-30) mmol/L Anion Gap (5-15) MEQ/L BUN (7-17) mg/dL Creatinine (0.52-1.04) mg/dL Estimated GFR ML/MIN Glucose (74-106) mg/dL Calcium (8.4-10.2) mg/dL Total Bilirubin (0.2-1.3) mg/dL AST (14-36) U/L ALT (0-35) U/L Alkaline Phosphatase (38-126) U/L Serum Total Protein (6.3-8.2) g/dL Albumin (3.5-5.0) g/dL Lipase (23-300) U/L Urine Color Dark Yellow A (Yellow) Urine Appearance Cloudy A (Clear) Urine pH 5.5 (4.6-8.0) Ur Specific [place] >=1.030 A (1.005-1.030) Urine Protein 30 (Negative) Urine Glucose (UA) Negative (Negative) mg/dL Urine Ketones Trace A (Negative) Urine Blood Negative (Negative) Urine Nitrite Negative (Negative) Urine Bilirubin Small A (Negative) Urine Urobilinogen 1.0 A (0.2) mg/dL Ur Leukocyte Esterase Large A (Negative) U Hyaline Cast (Auto) 3-5 A (0-2) /LPF Urine Microscopic RBC 3-5 (0-5) /HPF Urine Microscopic WBC >100 A (0-5) /HPF Ur Epithelial Cells Moderate A (None Seen) /HPF Calcium Oxalate Crystal 3-5 A (None Seen) /HPF Urine Bacteria Moderate A (None Seen) /HPF Urine Culture Reflexed YES (NO) Influenza Type A Ag (NEGATIVE) Influenza Type B Ag (NEGATIVE) RSV (PCR) (NEGATIVE) SARS-CoV-2 (PCR) (NEGATIVE) Slides for Path Review - Progress Progress: improved Progress Note: 09/30/23 47 years old is evaluated for abdominal pain/bloating/nausea with recent ventral hernia repair with mesh placement. Patient has good bowel sounds in all 4 quadrants. Generalized soreness and tenderness specially around the incisions area. She is given symptomatic treatment, on reevaluation feeling better. Workup showed normal white count, unremarkable chemistries, does have UTI and given a dose of Rocephin in here and will start Keflex to go home. CT abdomen pelvis consistent with recent surgical procedure but no collection, perforation, or any other acute findings. Patient is thoroughly counseled and recommended using stool softener and outpatient follow-up. Discussed signs symptoms of worsening needing return to ER which she seems understanding. Discharge paperwork is given during downtime Counseled pt/family regarding: lab results, diagnosis, rad results Medical Desision Making - Independent Historian Additional History obtained from: Child - Diagnostic Testing Diagnostic test were ordered, analyzed, and reviewed by me: Yes Radiological Interpretation: Reviewed by me, Teleradiologist Report - Risk of complications The pt has a mod risk of morbidity or mortality based on: Need for prescription drug management - Departure Departure Disposition: Home Clinical Impression: S/P repair of ventral hernia, Abdominal bloating, Acute UTI (urinary tract infection) Condition: Stable Critical Care Time: No Referrals: MANNY FREITAS [Primary Care Provider] - Follow up/PCP as directed
[2023-09-29] MEDS ORDERED: Sodium Chloride 0.9% 1000 ML 1,000 ML ONE (22:55)
[2023-09-29] MEDS ORDERED: Reglan 10 MG/2 ML ONE (22:55)
[2023-09-29] MEDS: Reglan 10 MG/2 ML IV ONE (23:03)
[2023-09-29] MEDS: Sodium Chloride 0.9% 1000 ML 1,000 ML IV STA (23:03)
[2023-09-29 23:07] LABS: Absolute Neutrophil Ct (ANC) 6.55 x10^3/uL (1.56-6.13); BASOPHIL % 0.1 % (0.1-1.2); Basophil (Absolute #) 0.01 x10^3/uL (0.01-0.08); Eosinophil % 2.8 % (0.7-5.8); Eosinophil (Absolute #) 0.21 x10^3/uL (0.04-0.36); Hematocrit 41.2 % (34.1-44.9); IMMATURE GRAN # 0.03 x10^3u/L (0.001-0.031); IMMATURE GRAN % 0.4 % (0.001-0.429); Lymphocyte (Absolute #) 0.36 x10^3/uL (1.18-3.74); Lymphocytes % 4.8 % (19.3-51.7); Mean Cell Volume 90.7 fL (79.4-94.8); Mean Corpuscular Hemoglobin 30.8 pg (25.6-32.2); Mean Platelet Volume 10.5 fL (9.4-12.3); Monocyte (Absolute #) 0.34 x10^3/uL (0.24-0.86); Monocytes % 4.5 % (4.7-12.5); Neutrophil % 87.4 % (34.0-71.1); Platelet Count 181 x10^3/uL (182-369); Red Blood Count 4.54 x10^6/uL (3.93-5.22); Red Cell Distribution Width 12.4 % (11.7-14.4); White Blood Count 7.5 x10^3/uL (3.98-10.04)
[2023-09-29 23:11] LABS: Appearance Cloudy (Clear); Bacteria Moderate /HPF (None Seen); Bilirubin Small (Negative); Blood Negative (Negative); Epithelial Cells Moderate /HPF (None Seen); Glucose, Urine Negative (Negative); Ketones Trace (Negative); Leukocyte Esterase Large (Negative); Nitrite Negative (Negative); Ph 5.5 (4.6-8.0); Protein,Urine Dip 30 (Negative); Specific Gravity >=1.030 (1.005-1.030); WBC >100 /HPF (0-5)
[2023-09-29 23:25] LABS: ADD URINE CULTURE? YES (NO)
[2023-09-29 23:43] LABS: INFLUENZA A NEGATIVE (NEGATIVE); INFLUENZA B NEGATIVE (NEGATIVE); RESPIRATORY SYNCTIAL VIRUS NEGATIVE (NEGATIVE); SARS-CoV-2 Xpert Express NEGATIVE (NEGATIVE)
[2023-09-30 00:01] LABS: ALBUMIN 3.6 g/dL (3.5-5.0); ANION GAP 8.8 MEQ/L (5-15); BILIRUBIN,TOTAL 0.6 mg/dL (0.2-1.3); Calcium 8.8 mg/dL (8.4-10.2); Creatinine 1 0.85 mg/dL (0.52-1.04); EST GLOMERULAR FILTRATION RATE 80.4 ML/MIN; Potassium 3.8 mmol/L (3.5-5.1); Total Protein 6.3 g/dL (6.3-8.2)
[2023-09-30] MEDS ORDERED: ROCEPHIN 2 GM/100 ML NACL 2 GM/100 ML IVPB IV ONE (00:21)
[2023-09-30] MEDS: ROCEPHIN 2 GM/100 ML NACL 2 GM/100 ML IVPB IV ONE (00:22)
[2023-09-30] MEDS ORDERED: Zofran 4 MG/2 ML VIAL ONE (00:47)
--- NOTE | 2023-09-30 02:49 | XRAY ---
CLINICAL HISTORY: vomiting/bloating, hernia repair 3d COMPARISON: None. TECHNIQUE: A CT scan of the abdomen and pelvis was performed without IV contrast administration. Coronal and sagittal reconstructive images were also obtained. One of the following dose reduction techniques was utilized for this exam: Automated exposure control, adjustment of the mA and/or kV according to patient size, and use of iterative reconstruction. CTDI: 19.46 mGy, DLP: 1025.58 mGy-cm. FINDINGS: Smudged anterior and left anterolateral abdominal wall fat planes showing air loculi extending along the left lower chest wall with smudged related intra-abdominal peritoneal and greater omentum fat planes showing air loculi. No obvious related fluid-filled collections. Enlarged liver showing homogenous parenchymal attenuation with segment 6 mm hypodense focus. No dilated intra or extra-hepatic biliary tracts. Distended gall bladder showing no obvious radiodense calculi. Clear surrounding fat planes with no sizeable collections. The normal unenhanced appearance of the pancreas with clear surrounding fat planes. Splenic calcific foci, possibly granulomas. The unenhanced adrenal glands and IVC are unremarkable. Aortoiliac atheromatous calcifications. Both kidneys are of average size and show a smooth outline and preserved parenchymal thickness. No renal calculi. No hydronephrosis. Duplex left urinary collecting system. The urinary bladder is distended showing no obvious masses. air loculus noted possibly related to prior catheter application Non-visualized uterus likely surgically removed. No pelvi-abdominal encysted collections. No obvious pathologically enlarged lymph nodes. The appendix is not identified. No obvious right iliac inflammatory changes. The ascending colon, the transverse colon, the descending colon, visualized small bowel loops are unremarkable. The stomach appears unremarkable. Multiple pelvic phleboli. Scanned osseous structures show thoracolumbar spondylosis. No osseous destruction. Elevated left diaphragmatic copula with related left basal calcific foci. Scanned lung bases show atelectatic plates. IMPRESSION: 1. Smudged anterior and left anterolateral abdominal & chest wall fat planes showing air loculi with smudged related intra-abdominal peritoneal and greater omentum fat planes showing air loculi. No obvious related fluid filled collections. 2. Hepatomegaly with segment small cyst. 3. Splenic calcific foci, possibly granulomas. Electronically Signed by: Cortney Yates MD. (09/30/2023 00:33:02 EDT)
[2023-09-30 03:10] VITALS: BP 134/66; PULSE 90
[2023-09-30 05:48] LABS: Slide Review 1 YES
[2023-10-02 10:28] VITALS: O2SAT 99
== END 2023-09-30 01:40 | disposition home or self-care (01) ==
LOC: ED 22:19
DX: N39.0 Urinary tract infection, site not specified (principal); R14.0 Abdominal distension (gaseous); Z98.890 Other specified postprocedural states; R11.2 Nausea with vomiting, unspecified; I10 Essential (primary) hypertension; E11.9 Type 2 diabetes mellitus without complications; Z79.84 Long term (current) use of oral hypoglycemic drugs; Z79.85 Long-term (current) use of injectable non-insulin antidiabetic drugs; Z79.899 Other long term (current) drug therapy
CPT/HCPCS: 0241U; 36000; 36415; 74176; 80053; 81001; 83690; 85025; 87086; 96374; 99284; J0696; J2405